=== PATIENT | male | born 1995 | race Two or more races ===

== ENCOUNTER 2019-06-25 00:27 | Emergency (ER) | payer BC ==
[2019-06-25] MEDS ORDERED: LORazepam INJ* 2 MG/ML 1 ML VIAL IV PUSH ONE (00:43)
[2019-06-25] MEDS ORDERED: Lorazepam PYXIS KEY PRN (00:43)
[2019-06-25] MEDS ORDERED: Ondansetron INJ* 2 MG/ML VIAL IV ONE (00:44)
[2019-06-25] MEDS ORDERED: NS 0.9% 1000 ML** 1,000 ML IV ONE (00:44)
[2019-06-25] MEDS ORDERED: Lorazepam PYXIS KEY ONE (00:49)
--- NOTE | 2019-06-25 00:59 | ED ---
GI/ HPI - HPI Summary HPI Summary: 24 year old male presents with vomiting for the past day. He states 4 days ago he started just feeling off. He had a sore throat and headache. He states he did have a fever. No neck stiffness. Denies any cough chest pain or shortness breath. Denies abdominal pain. No diarrhea. he has not been able to keep anything down. He states he has history of anxiety and has not been able to keep any of his meds down so is very anxious. No one else is sick. No recent travel. No previous surgeries. No urinary symptoms. - History of Current Complaint Chief Complaint: EDNauseaVomitDiarrh Time Seen by Provider: 06/25/19 00:38 Stated Complaint: THROWING UP FOR 4 DAYS PER PT Pain Intensity: 0 - Allergy/Home Medications Allergies/Adverse Reactions: Allergies Allergy/AdvReac Type Severity Reaction Status Date / Time No Known Allergies Allergy Verified 06/25/19 00:31 Home Medications: Home Medications ALPRAZolam [Xanax] 1 mg PO DAILY 06/25/19 [History Confirmed 06/25/19] Lisdexamfetamine Dimesylate [Vyvanse] 60 mg PO DAILY 06/25/19 [History Confirmed 06/25/19] Prazosin HCl 2 mg PO DAILY 06/25/19 [History Confirmed 06/25/19] Ramipril 1.25 mg PO DAILY 06/25/19 [History Confirmed 06/25/19] Venlafaxine ER (NF) [Effexor ER (NF)] 225 mg PO DAILY 06/25/19 [History Confirmed 06/25/19] lamoTRIgine [Lamotrigine] 100 mg PO BID 06/25/19 [History Confirmed 06/25/19] PMH/Surg Hx/FS Hx/Imm Hx Endocrine/Hematology History: Denies: Hx Anticoagulant Therapy Respiratory History: Denies: Hx Asthma Infectious Disease History: No Infectious Disease History: Denies: Traveled Outside the [place] in Last 30 Days - Family History Known Family History: Positive: Non-Contributory - Social History Alcohol Use: None Substance Use Type: Reports: None Smoking Status (MU): Never Smoked Tobacco Review of Systems Positive: Fever Positive: Sore Throat Negative: Chest Pain Negative: Shortness Of Breath Positive: Nausea Positive: Headache All Other Systems Reviewed And Are Negative: Yes Physical Exam Triage Information Reviewed: Yes Vital Signs On Initial Exam: Initial Vitals Temp Pulse Resp BP Pulse Ox 97.5 F 75 18 167/121 94 06/25/19 00:30 06/25/19 00:30 06/25/19 00:30 06/25/19 00:30 06/25/19 00:30 Vital Signs Reviewed: Yes Appearance: Positive: Well-Appearing Skin: Positive: Warm, Dry Head/Face: Positive: Normal Head/Face Inspection Eyes: Positive: Normal, Conjunctiva Clear ENT: Positive: Pharynx normal Respiratory/Lung Sounds: Positive: Clear to Auscultation, Breath Sounds Present Cardiovascular: Positive: Normal, RRR Abdomen Description: Positive: Nontender, Soft Bowel Sounds: Positive: Present Musculoskeletal: Positive: Normal Neurological: Positive: Normal Psychiatric: Positive: Normal Diagnostics - Vital Signs Vital Signs Temp Pulse Resp BP Pulse Ox 06/25/19 00:30 97.5 F 75 18 167/121 94 - Laboratory Result Diagrams: 06/25/19 01:03 06/25/19 01:03 Lab Statement: Any lab studies that have been ordered have been reviewed, and results considered in the medical decision making process. Re-Evaluation - Re-Evaluation First Eval Re-Evaluation Time: 01:46 Comment: will PO challenge, nausea improved Second Eval Re-Evaluation Time: 02:11 Change: Improved Comment: able to tolerate crackers and water GIGU Course/Dx - Course Course Of Treatment: 24 year old male presents with vomiting for the past day. He states 4 days ago he started just feeling off. He had a sore throat and headache. He states he did have a fever. No neck stiffness. Denies any cough chest pain or shortness breath. Denies abdominal pain. No diarrhea. he has not been able to keep anything down. He states he has history of anxiety and has not been able to keep any of his meds down so is very anxious. No one else is sick. No recent travel. No previous surgeries. No urinary symptoms. On exam lungs CTA. Pharynx normal. Abdomen soft nontender. wbc normal. electrolytes normal. strept neg. mono neg. gave fluids and zofran and feeling better. will PO challenge. was able to tolerate water and crackers. will discharge with zofran. told follow up with primary. patient understand and agrees with plan. - Diagnoses Differential Diagnoses - Male: Gastroenteritis (Bacterial), Gastroenteritis ( Viral), Urinary Tract Infection, Vomiting Provider Diagnoses: Vomiting Discharge ED - Sign-Out/Discharge Documenting (check all that apply): Patient Departure Patient Received Moderate/Deep Sedation with Procedure: No - Discharge Plan Condition: Good Disposition: HOME Prescriptions: Ondansetron ODT TAB* [Zofran 4 MG Odt TAB*] 4 mg PO Q6H PRN #12 tab.odt PRN Reason: Nausea Patient Education Materials: Acute Nausea and Vomiting (ED) Referrals: Prashanth Almodovar MD [Primary Care Provider] - Additional Instructions: Can take Zofran every 6 hours as needed for nausea Drink small amounts of fluid as tolerated When able to eat follow BRAT diet: Bananas, rice, applesauce, toast Take ibuprofen or Tylenol for pain as needed every 6 hours Follow up with primary within 5 days Return to ED if develop any new or worsening symptoms - Billing Disposition and Condition Condition: GOOD Disposition: Home
[2019-06-25 01:08] LABS: Rapid Strep Molecular Negative (Negative)
[2019-06-25 01:10] LABS: ABS Eosinophils 0.1 10^3/ul (0-0.6); ABS Lymphocytes 1.4 10^3/ul (1.0-4.8); ABS Monocytes 0.5 10^3/ul (0-0.8); ABS Neutrophils 4.2 10^3/ul (1.5-7.7); Eosinophil % 2.3 %; Hematocrit 49 % (42-52); Hemoglobin 16.8 g/dL (14.0-18.0); Lymphocyte % 22.3 %; Mean Corpuscular HGB Conc 34 g/dL (31-36); Mean Corpuscular Hemoglobin 31 pg (27-31); Mean Corpuscular Volume 92 fL (80-94); Mean Platelet Volume 7.3 fL (7.4-10.4); Platelet Count 296 10^3/uL (150-450); Red Blood Count 5.33 10^6 /uL (4.18-5.48); Red Cell Distribution Width 14 % (10-15); White Blood Count 6.3 10^3/uL (3.5-10.8)
[2019-06-25 01:36] LABS: Albumin 4.6 g/dL (3.2-5.2); Albumin/Globulin Ratio 1.5 (1-3); BUN/Creatinine Ratio 16.1 (8-20); C Reactive Protein 9.65 mg/L (<8.01); Calcium 9.7 mg/dL (8.6-10.3); EGFR African American 128.3 (>60); EGFR Non-African American 106.1 (>60); Globulin 3.1 g/dL (2-4); Magnesium 2.2 mg/dL (1.9-2.7); Potassium 4.4 mmol/L (3.5-5.0); Total Bilirubin 0.3 mg/dL (0.2-1.0); Total Protein 7.7 g/dL (6.4-8.9)
[2019-06-25] MEDS ORDERED: O ndansetron ODT 4MG 5TAB PRPK 4 MG PAK PO ONE (02:08)
[2019-06-25 02:20] VITALS: BP 117/91
== END 2019-06-25 02:19 | disposition home or self-care (01) ==
LOC: ED 00:27
DX: R11.10 Vomiting, unspecified (principal); Z79.899 Other long term (current) drug therapy
CPT/HCPCS: 36415; 80053; 83605; 83690; 83735; 85025; 86140; 86308; 87651; 96361; 96374; 96375; 99283; A9270-GY; J2060; J2405